=== PATIENT | male | born 1940 | race Caucasian/White ===

== ENCOUNTER 2021-11-11 09:59 | Inpatient (IN) | payer MEDICARE, BC ==
[2021-11-11 10:36] LABS: #Basophils 0.1 10x3/uL (0.0-0.2); #Eosinphils 0.2 10x3/uL (0.0-0.5); #Monocytes 1.7 10x3/uL (0.0-1.1); %Basophils 0.5 % (0.0-2.0); %Eosinophils 1.4 % (0.0-6.0); %Lymphocytes 5.3 % (18.0-47.0); %Monocytes 10.7 % (0.0-10.0); %Neutrophils 81.6 % (40.0-75.0); Hemoglobin 11.3 g/dL (13.5-17.5); Mean Corpuscular HGB CONC 32.7 g/dL (32.0-36.0); Mean Corpuscular Hemoglobin 30.2 pg (27.0-33.0); Mean Corpuscular Volume 92.5 fl (81.2-95.1); Mean Platelet Volume 10.6 fl (7.4-10.4); Platelet Count 270 10x3/uL (150-450); RBC Distribution Width 12.7 % (11.5-14.5); Red Blood Cell (RBC) Count 3.74 10x6/uL (4.32-5.72)
[2021-11-11 10:51] LABS: ALT (SGPT) 16 U/L (8-55); AST (SGOT) 20 U/L (5-34); Albumin 3.8 g/dL (3.4-4.8); Alkaline Phosphatase 80 U/L (40-110); Anion Gap 16 mmol/L (10-20); BUN (Urea Nitrogen) 33 mg/dL (8.4-25.7); Bilirubin, Total 0.6 mg/dL (0.2-1.2); CK (CPK) 78 U/L (30-200); Calc. Creatinine Clearance 0 mL/min (70-130); Calcium 8.5 mg/dL (7.8-10.44); Carbon Dioxide 19 mmol/L (23-31); Chloride 103 mmol/L (98-107); Estimated GFR 35; Globulin 2.9 g/dL (2.4-3.5); Glucose 366 mg/dL (83-110); Lipase 45 U/L (8-78); Potassium 4.3 mmol/L (3.5-5.1); Protein, Total 6.7 g/dL (5.8-8.1); Sodium 134 mmol/L (136-145)
[2021-11-11] MEDS ORDERED: Aspirin Chewable 81 MG TAB ONE (12:29)
[2021-11-11] MEDS ORDERED: Sodium Chloride 0.9% 1,000 ML IV SCH (13:00)
[2021-11-11] MEDS ORDERED: Dextrose 50% Abboject 50 ML SYRINGE SLOW IVP PRN (13:26)
[2021-11-11] MEDS ORDERED: Dextrose 5% in Water 1,000 ML IV PRN (13:26)
[2021-11-11 13:42] LABS: Troponin I Less than 0.010 ng/mL (< 0.028)
[2021-11-11 14:55] LABS: CK (CPK) 71 U/L (30-200); Iron 12 ug/dL (65-175); Iron Binding Capacity, Total 240 mcg/dL (261-462); Magnesium 2.2 mg/dL (1.6-2.6); Phosphorus 3.3 mg/dL (2.3-4.7)
[2021-11-11] MEDS ORDERED: Enoxaparin Sodium 40 MG/0.4 ML SYRINGE SC SCH (15:00)
[2021-11-11 15:25] LABS: SARS-CoV-2 NAA Rapid Test Not Detected (NotDetected)
[2021-11-11] MEDS: HumaLOG 300 UNITS/3 ML VIAL SC PRN (16:02)
[2021-11-11 16:10] VITALS: BMI 26.4
[2021-11-11] MEDS ORDERED: hydrALAZINE 20 MG/ML VIAL SLOW IVP PRN (16:17)
[2021-11-11] MEDS ORDERED: Iron Sucrose Complex 200 MG in Sodium Chloride 0.9% 100 ML IVPB SCH (17:15)
[2021-11-11 18:32] LABS: Bilirubin Neg (Negative); Blood, Urine 10 (Negative); Clarity Clear (Clear); Glucose, Urine (Dipstick) >=1000 mg/dL (Negative); Ketone, Urine Negative (Negative); Leukocyte Negative (Negative); Nitrite Negative (Negative); Protein, Urine (Dipstick) 30 mg/dl (Neg-Trace); Urobilinogen Normal mg/dL (Less than 2)
[2021-11-11 18:36] LABS: Urine Culture Reflex No No
[2021-11-11 18:39] LABS: Bacteria/HPF None Seen HPF (None Seen); RBC/HPF 0-3 HPF (0-3); Squamous Epithelial 0-3 HPF (0-3); WBC/HPF 0-3 HPF (0-3)
[2021-11-11 19:48] LABS: Hemoglobin A1c 8.7 % (4.0-6.0)
[2021-11-11] MEDS ORDERED: Iron, Sodium Ferric Gluconate 250 MG in Sodium Chloride 0.9% 250 ML 250 ML IVPB SCH (21:00)
[2021-11-12 04:49] LABS: #Basophils 0.1 10x3/uL (0.0-0.2); #Eosinphils 0.2 10x3/uL (0.0-0.5); #Monocytes 1.8 10x3/uL (0.0-1.1); #Neutrophils 14.1 10x3/uL (1.5-8.4); %Basophils 0.3 % (0.0-2.0); %Lymphocytes 4.5 % (18.0-47.0); %Monocytes 10.4 % (0.0-10.0); %Neutrophils 83.2 % (40.0-75.0); Hemoglobin 10.7 g/dL (13.5-17.5); Mean Corpuscular HGB CONC 32.6 g/dL (32.0-36.0); Mean Corpuscular Volume 91.9 fl (81.2-95.1); Mean Platelet Volume 10.7 fl (7.4-10.4); Platelet Count 275 10x3/uL (150-450); RBC Distribution Width 12.7 % (11.5-14.5); Red Blood Cell (RBC) Count 3.57 10x6/uL (4.32-5.72)
[2021-11-12 05:00] LABS: Anion Gap 16 mmol/L (10-20); BUN (Urea Nitrogen) 26 mg/dL (8.4-25.7); Calc. Creatinine Clearance 35 mL/min (70-130); Calcium 8.7 mg/dL (7.8-10.44); Carbon Dioxide 22 mmol/L (23-31); Chloride 105 mmol/L (98-107); Estimated GFR 36; Glucose 142 mg/dL (83-110); Potassium 3.9 mmol/L (3.5-5.1); Sodium 139 mmol/L (136-145)
[2021-11-12] MEDS ORDERED: Acetaminophen 325 MG TAB PO PRN (05:51)
[2021-11-12] MEDS: Enoxaparin Sodium 40 MG/0.4 ML SYRINGE SC SCH (08:45)
[2021-11-12] MEDS: Lactated Ringer's 1,000 ML IV SCH (11:45)
[2021-11-12] MEDS: HumaLOG 300 UNITS/3 ML VIAL SC PRN ×2 (12:53→17:38)
[2021-11-12] MEDS: cefTRIAXone\\ROCEPHIN 2 GM in Sodium Chloride 0.9% 100 ML IVPB SCH (13:07)
[2021-11-12] MEDS ORDERED: Moisturizing Cream (Eucerin) 113 GM JAR TOP PRN (17:04)
[2021-11-12] MEDS ORDERED: Acetaminophen 500 MG TAB PO PRN (17:04)
[2021-11-12] MEDS ORDERED: Artificial Tear Sol 15 ML BOT EA EYE PRN (17:04)
[2021-11-12] MEDS ORDERED: Acetaminophen 650 MG Suppository PR PRN (17:04)
[2021-11-12] MEDS ORDERED: Ondansetron ODT 4 MG TAB PO PRN (17:04)
[2021-11-12] MEDS ORDERED: Sodium Chloride 0.65% Nasal 44 ML BOT EA NARE PRN (17:04)
[2021-11-12] MEDS ORDERED: GUAIFENESIN SF SOLN 200 MG/10 ML UDCUP PO PRN (17:04)
[2021-11-12] MEDS ORDERED: Polyethylene Glycol 3350 17 GM Packet PO PRN (17:05)
[2021-11-12] MEDS: Cepastat Lozenges 1 LOZ PO PRN (22:53)
[2021-11-12] MEDS: Benzonatate 100 MG CAP PO PRN (22:53)
[2021-11-13] MEDS: Lactated Ringer's 1,000 ML IV SCH (01:30)
[2021-11-13] MEDS: HumaLOG 300 UNITS/3 ML VIAL SC PRN ×2 (07:55→12:25)
[2021-11-13] MEDS: Enoxaparin Sodium 40 MG/0.4 ML SYRINGE SC SCH (08:10)
[2021-11-13] MEDS: Aspirin 81 mg Enteric Coated Tablet PO SCH (08:10)
[2021-11-13] MEDS: Atorvastatin Calcium 10 MG TAB PO SCH (08:10)
[2021-11-13] MEDS: Tamsulosin HCl 0.4 MG CAP PO SCH (08:10)
[2021-11-13] MEDS ORDERED: Empagliflozin 25 MG TAB PO SCH (09:00)
[2021-11-13 11:22] LABS: #Basophils 0.1 10x3/uL (0.0-0.2); #Eosinphils 0.6 10x3/uL (0.0-0.5); #Monocytes 1.5 10x3/uL (0.0-1.1); #Neutrophils 16.9 10x3/uL (1.5-8.4); %Basophils 0.4 % (0.0-2.0); %Monocytes 7.5 % (0.0-10.0); %Neutrophils 84.5 % (40.0-75.0); Hemoglobin 9.9 g/dL (13.5-17.5); Mean Corpuscular HGB CONC 33.1 g/dL (32.0-36.0); Mean Corpuscular Volume 90.6 fl (81.2-95.1); Mean Platelet Volume 10.2 fl (7.4-10.4); Platelet Count 268 10x3/uL (150-450)
[2021-11-13 11:39] LABS: Anion Gap 17 mmol/L (10-20); BUN (Urea Nitrogen) 31 mg/dL (8.4-25.7); Calc. Creatinine Clearance 30 mL/min (70-130); Calcium 8.3 mg/dL (7.8-10.44); Carbon Dioxide 21 mmol/L (23-31); Chloride 104 mmol/L (98-107); Estimated GFR 31; Glucose 283 mg/dL (83-110); Potassium 3.7 mmol/L (3.5-5.1); Sodium 138 mmol/L (136-145)
[2021-11-13] MEDS: cefTRIAXone\\ROCEPHIN 2 GM in Sodium Chloride 0.9% 100 ML IVPB SCH (12:13)
[2021-11-13] MEDS: Cepastat Lozenges 1 LOZ PO PRN (22:18)
[2021-11-13] MEDS: Benzonatate 100 MG CAP PO PRN (22:18)
[2021-11-14 05:40] LABS: #Basophils 0.1 10x3/uL (0.0-0.2); #Eosinphils 0.5 10x3/uL (0.0-0.5); #Monocytes 1.4 10x3/uL (0.0-1.1); #Neutrophils 13.3 10x3/uL (1.5-8.4); %Basophils 0.4 % (0.0-2.0); %Lymphocytes 6.2 % (18.0-47.0); %Monocytes 8.5 % (0.0-10.0); %Neutrophils 80.6 % (40.0-75.0); Hemoglobin 11.2 g/dL (13.5-17.5); Mean Corpuscular HGB CONC 33.2 g/dL (32.0-36.0); Mean Corpuscular Hemoglobin 30.4 pg (27.0-33.0); Mean Corpuscular Volume 91.6 fl (81.2-95.1); Mean Platelet Volume 10.4 fl (7.4-10.4); Platelet Count 317 10x3/uL (150-450); RBC Distribution Width 13.1 % (11.5-14.5); Red Blood Cell (RBC) Count 3.68 10x6/uL (4.32-5.72); White Blood Cell (WBC) Count 16.4 10x3/uL (3.5-10.5)
[2021-11-14 06:01] LABS: Anion Gap 19 mmol/L (10-20); BUN (Urea Nitrogen) 30 mg/dL (8.4-25.7); Calc. Creatinine Clearance 32 mL/min (70-130); Calcium 8.7 mg/dL (7.8-10.44); Carbon Dioxide 20 mmol/L (23-31); Chloride 104 mmol/L (98-107); Estimated GFR 32; Glucose 148 mg/dL (83-110); Potassium 3.8 mmol/L (3.5-5.1); Sodium 139 mmol/L (136-145)
[2021-11-14] MEDS: Aspirin 81 mg Enteric Coated Tablet PO SCH (08:38)
[2021-11-14] MEDS: Tamsulosin HCl 0.4 MG CAP PO SCH (08:38)
[2021-11-14] MEDS: Atorvastatin Calcium 10 MG TAB PO SCH (08:38)
[2021-11-14] MEDS: Enoxaparin Sodium 30 MG/0.3 ML SYRINGE SC SCH (08:38)
[2021-11-14] MEDS: Sodium Chloride 0.9% 1,000 ML IV SCH (13:18)
[2021-11-14] MEDS: HumaLOG 300 UNITS/3 ML VIAL SC PRN ×3 (13:20→20:57)
[2021-11-14] MEDS: Acetaminophen 500 MG TAB PO PRN (20:37)
[2021-11-14] MEDS: Benzonatate 100 MG CAP PO PRN (20:39)
[2021-11-14 22:04] LABS: SARS-CoV-2 NAA Rapid Test Not Detected (NotDetected)
[2021-11-14] MEDS ORDERED: Guaifenesin DM 100-10/5 ML UDCUP PO PRN (22:41)
[2021-11-14] MEDS ORDERED: guaiFENesin/Codeine Phosphate 100 mg/10 mg 5 ml UD Cup PO SCH (22:45)
[2021-11-15] MEDS: Sodium Chloride 0.9% 1,000 ML IV SCH ×2 (03:00→16:20)
[2021-11-15] MEDS: Acetaminophen 500 MG TAB PO PRN (04:28)
[2021-11-15] MEDS: HumaLOG 300 UNITS/3 ML VIAL SC PRN ×4 (04:30→22:08)
[2021-11-15 05:49] LABS: Anion Gap 15 mmol/L (10-20); BUN (Urea Nitrogen) 29 mg/dL (8.4-25.7); Calc. Creatinine Clearance 33 mL/min (70-130); Calcium 8.1 mg/dL (7.8-10.44); Carbon Dioxide 21 mmol/L (23-31); Chloride 108 mmol/L (98-107); Estimated GFR 34; Glucose 157 mg/dL (83-110); Potassium 3.7 mmol/L (3.5-5.1); Sodium 140 mmol/L (136-145)
[2021-11-15 05:57] LABS: #Basophils 0.1 10x3/uL (0.0-0.2); #Eosinphils 1.3 10x3/uL (0.0-0.5); #Monocytes 1.3 10x3/uL (0.0-1.1); #Neutrophils 10.3 10x3/uL (1.5-8.4); %Basophils 0.5 % (0.0-2.0); %Eosinophils 9.1 % (0.0-6.0); %Lymphocytes 6.9 % (18.0-47.0); %Monocytes 8.9 % (0.0-10.0); %Neutrophils 73.6 % (40.0-75.0); Hemoglobin 10.2 g/dL (13.5-17.5); Mean Corpuscular HGB CONC 32.5 g/dL (32.0-36.0); Mean Corpuscular Hemoglobin 29.9 pg (27.0-33.0); Mean Corpuscular Volume 92.1 fl (81.2-95.1); Mean Platelet Volume 10.1 fl (7.4-10.4); Platelet Count 315 10x3/uL (150-450); RBC Distribution Width 13.2 % (11.5-14.5); Red Blood Cell (RBC) Count 3.41 10x6/uL (4.32-5.72); White Blood Cell (WBC) Count 14.1 10x3/uL (3.5-10.5)
[2021-11-15] MEDS: Benzonatate 100 MG CAP PO PRN ×2 (08:57→18:36)
[2021-11-15] MEDS: Enoxaparin Sodium 30 MG/0.3 ML SYRINGE SC SCH (08:57)
[2021-11-15] MEDS: Aspirin 81 mg Enteric Coated Tablet PO SCH (08:57)
[2021-11-15] MEDS: Atorvastatin Calcium 10 MG TAB PO SCH (08:57)
[2021-11-15] MEDS: Tamsulosin HCl 0.4 MG CAP PO SCH (09:00)
[2021-11-16 05:04] LABS: #Eosinphils 1.3 10x3/uL (0.0-0.5); #Monocytes 1.1 10x3/uL (0.0-1.1); #Neutrophils 10.6 10x3/uL (1.5-8.4); %Basophils 0.3 % (0.0-2.0); %Lymphocytes 6.1 % (18.0-47.0); %Monocytes 8.1 % (0.0-10.0); %Neutrophils 75.7 % (40.0-75.0); Hemoglobin 9.2 g/dL (13.5-17.5); Mean Corpuscular HGB CONC 33.5 g/dL (32.0-36.0); Mean Corpuscular Hemoglobin 30.3 pg (27.0-33.0); Mean Corpuscular Volume 90.5 fl (81.2-95.1); Mean Platelet Volume 9.9 fl (7.4-10.4); Platelet Count 312 10x3/uL (150-450); RBC Distribution Width 13.3 % (11.5-14.5); Red Blood Cell (RBC) Count 3.04 10x6/uL (4.32-5.72)
[2021-11-16 05:27] LABS: Anion Gap 12 mmol/L (10-20); BUN (Urea Nitrogen) 29 mg/dL (8.4-25.7); Calc. Creatinine Clearance 36 mL/min (70-130); Calcium 8.1 mg/dL (7.8-10.44); Carbon Dioxide 20 mmol/L (23-31); Chloride 110 mmol/L (98-107); Estimated GFR 38; Potassium 3.6 mmol/L (3.5-5.1); Sodium 138 mmol/L (136-145)
[2021-11-16 05:31] LABS: Glucose 166 mg/dL (83-110)
[2021-11-16] MEDS: Sodium Chloride 0.9% 1,000 ML IV SCH (06:05)
[2021-11-16] MEDS: HumaLOG 300 UNITS/3 ML VIAL SC PRN ×2 (06:06→17:19)
[2021-11-16] MEDS: Atorvastatin Calcium 10 MG TAB PO SCH (08:15)
[2021-11-16] MEDS: Aspirin 81 mg Enteric Coated Tablet PO SCH (08:16)
[2021-11-16] MEDS: Tamsulosin HCl 0.4 MG CAP PO SCH (08:16)
[2021-11-16] MEDS ORDERED: Enoxaparin Sodium 40 MG/0.4 ML SYRINGE SC SCH (09:00)
[2021-11-16] MEDS ORDERED: Acetaminophen 500 MG TAB PO PRN (10:03)
[2021-11-16] MEDS: Benzonatate 100 MG CAP PO PRN (17:13)
[2021-11-16] MEDS: guaiFENesin/Codeine Phosphate 100 mg/10 mg 5 ml UD Cup PO PRN (17:13)
[2021-11-17] MEDS: HumaLOG 300 UNITS/3 ML VIAL SC PRN (04:55)
[2021-11-17] MEDS: Cepastat Lozenges 1 LOZ PO PRN (04:55)
[2021-11-17] MEDS: guaiFENesin/Codeine Phosphate 100 mg/10 mg 5 ml UD Cup PO PRN (04:55)
[2021-11-17 05:06] LABS: #Basophils 0.1 10x3/uL (0.0-0.2); #Eosinphils 1.4 10x3/uL (0.0-0.5); #Monocytes 1.1 10x3/uL (0.0-1.1); #Neutrophils 10.1 10x3/uL (1.5-8.4); %Basophils 0.6 % (0.0-2.0); %Eosinophils 10.3 % (0.0-6.0); %Lymphocytes 6.4 % (18.0-47.0); %Monocytes 8.1 % (0.0-10.0); %Neutrophils 73.6 % (40.0-75.0); Hemoglobin 9.7 g/dL (13.5-17.5); Mean Corpuscular HGB CONC 33.3 g/dL (32.0-36.0); Mean Corpuscular Hemoglobin 30.6 pg (27.0-33.0); Mean Corpuscular Volume 91.8 fl (81.2-95.1); Mean Platelet Volume 9.9 fl (7.4-10.4); Platelet Count 358 10x3/uL (150-450); RBC Distribution Width 13.4 % (11.5-14.5); Red Blood Cell (RBC) Count 3.17 10x6/uL (4.32-5.72); White Blood Cell (WBC) Count 13.7 10x3/uL (3.5-10.5)
[2021-11-17 05:43] LABS: Anion Gap 14 mmol/L (10-20); BUN (Urea Nitrogen) 25 mg/dL (8.4-25.7); Calc. Creatinine Clearance 36 mL/min (70-130); Calcium 8.2 mg/dL (7.8-10.44); Carbon Dioxide 20 mmol/L (23-31); Chloride 111 mmol/L (98-107); Estimated GFR 38; Glucose 167 mg/dL (83-110); Sodium 141 mmol/L (136-145)
[2021-11-17 08:54] VITALS: TEMP 97.7
[2021-11-17] MEDS ORDERED: Enoxaparin Sodium 30 MG/0.3 ML SYRINGE SC SCH (09:00)
[2021-11-17] MEDS ORDERED: Enoxaparin Sodium 40 MG/0.4 ML SYRINGE SC SCH (09:00)
[2021-11-17] MEDS: Atorvastatin Calcium 10 MG TAB PO SCH (09:04)
[2021-11-17] MEDS: Tamsulosin HCl 0.4 MG CAP PO SCH (09:04)
[2021-11-17] MEDS: Aspirin 81 mg Enteric Coated Tablet PO SCH (09:04)
[2021-11-17] MEDS: Benzonatate 100 MG CAP PO PRN (09:04)
[2021-11-17 12:48] VITALS: BP 157/71
== END 2021-11-17 11:15 | disposition home or self-care (01) | DRG 202 ==
LOC: CSHERS 09:59 → CSHTELE 14:44 → OBSVTOIN 11-13 10:48
PROVIDERS: ADMIT Internal Medicine; ATTEND Internal Medicine
DX: J40 Bronchitis, not specified as acute or chronic (principal); N18.4 Chronic kidney disease, stage 4 (severe); N17.9 Acute kidney failure, unspecified; Z20.822 Contact with and (suspected) exposure to COVID-19; E11.22 Type 2 diabetes mellitus with diabetic chronic kidney disease; E78.5 Hyperlipidemia, unspecified; D50.9 Iron deficiency anemia, unspecified; E11.65 Type 2 diabetes mellitus with hyperglycemia; I12.9 Hypertensive chronic kidney disease with stage 1 through stage 4 chronic kidney disease, or unspecified chronic kidney disease; I45.10 Unspecified right bundle-branch block; Z79.82 Long term (current) use of aspirin; Z79.899 Other long term (current) drug therapy; Z79.4 Long term (current) use of insulin; Z88.2 Allergy status to sulfonamides; Z86.73 Personal history of transient ischemic attack (TIA), and cerebral infarction without residual deficits; Z82.49 Family history of ischemic heart disease and other diseases of the circulatory system; Z87.440 Personal history of urinary (tract) infections; Z85.46 Personal history of malignant neoplasm of prostate
CPT/HCPCS: 36415; 36416; 70450; 71045; 71250; 80048; 80053; 81001; 82550; 82607; 82728; 82746; 83036; 83540; 83550; 83605; 83690; 83735; 83880; 84100; 84145; 84484; 85025; 87040; 87086; 87633; 93005; 93306; 93970; 94760; 96372; 96374; 96375; G0378; J0696; J1650; J1815; J1956; J2916; J3490; J7050; J7120; U0002